=== PATIENT | female | born 1965 | race Caucasian/White ===

== ENCOUNTER → 2018-01-23 | Outpatient (CLI) | payer BC ==
--- NOTE | 2018-01-23 17:45 | PN ---
PROGRESS NOTE Celina is a 52-year-old female patient coming in for a yearly checkup regarding obstructive sleep apnea. She has severe ANGELA with an AHI of 108 and she has been using her CPAP regularly. She is benefitting from the treatment. She has an auto CPAP unit with a minimum pressure of 4, maximum pressure of 12. She has been compliant and she has been having no major hypersomnia or sleepiness during the day. She is in to obtain her CPAP supplies, and she wants to change her DME to [employer]. Her current [place] score is 7. No other new-onset comorbidities. I checked her compliance data, and the patient has been averaging around 5.4 hours of CPAP use per night. AHI while on treatment is down to 2. Her leak factor is only 9 L. Her CPAP pressure is 9 cm of water and she has been utilizing her CPAP more than 4 hours for 25 out of 30 days over this past 30-day compliancy data period. HER CURRENT VITAL SIGNS: Blood pressure 133/82, pulse 79, respirations 16, temperature 98.2. Weight is 249. Height is 5 feet 2 inches. [place] score is 7. BMI is 35.5. Saturation 94% on room air. GENERAL APPEARANCE: Calm, comfortable. Head is atraumatic, normocephalic. NECK: Short, supple. There is no crowding of the posterior pharynx. There is no goiter. No neck masses. LUNGS: Clear to auscultation. Heart sounds are regular rate and rhythm. Normal S1, S2. No S3, S4. No murmurs. Abdomen is soft, nontender. No organomegaly. EXTREMITIES: No edema. No cyanosis or clubbing. SKIN: Negative for any wounds or ulceration. IMPRESSION: 1. Severe symptomatic obstructive sleep apnea with an AHI of 108. The patient continues to be successfully treated with an APAP with a minimum pressure of 5, maximum pressure of 12. She is very compliant and continues to benefit from treatment. She has lost around 5 pounds since her last evaluation. 2. Obesity with a body mass index of 38.5. 3. Hypersomnia, resolved. [place] Score is 7. PLAN: 1. Renew her CPAP supplies through [employer]. The patient has an AirFit F10 full-face mask, medium size. 2. Encourage weight loss. 3. Implement good sleep hygiene measures. 4. Will continue to follow. MMODL / IJN: [id number] /
== END | disposition home or self-care (01) ==
LOC: SLEEP 16:03
PROVIDERS: ATTEND Internal Medicine Critical Care Medicine
DX: G47.33 Obstructive sleep apnea (adult) (pediatric) (principal); E66.9 Obesity, unspecified; Z99.89 Dependence on other enabling machines and devices; Z68.38 Body mass index [BMI] 38.0-38.9, adult

== ENCOUNTER → 2018-08-22 | Outpatient (CLI) | payer BC ==
--- NOTE | 2018-08-23 11:35 | MM ---
Reason for exam: screening (asymptomatic). Last mammogram was performed 4 years and 3 months ago. History: Patient is postmenopausal. Physical Findings: A clinical breast exam by your physician is recommended on an annual basis and results should be correlated with mammographic findings. MG 3D Screening Mammo W/Cad Bilateral CC and MLO view(s) were taken. Prior study comparison: May 20, 2014, bilateral MG screening mammo w CAD. The breast tissue is heterogeneously dense. This may lower the sensitivity of mammography. There is a right upper outer quadrant middle depth mas on 3D views. No suspicious abnormality on left. ASSESSMENT: Incomplete: need additional imaging evaluation, BI-RAD 0 RECOMMENDATION: Special view mammogram of the right breast. If lesion persists on supplemental views, image directed ultrasound is recommended. [facility] will attempt to contact patient to return for supplemental views and ultrasound if indicated.
== END | disposition home or self-care (01) ==
LOC: RADMAMWWP 14:36
PROVIDERS: ATTEND Family Medicine
DX: Z12.31 Encounter for screening mammogram for malignant neoplasm of breast (principal)
CPT/HCPCS: 77063; 77067

== ENCOUNTER → 2018-08-28 | Outpatient (CLI) | payer BC ==
--- NOTE | 2018-08-29 09:34 | MM ---
Reason for exam: additional evaluation requested from abnormal screening. Last mammogram was performed less than 1 month ago. History: Patient is postmenopausal. Physical Findings: Nurse did not find any significant physical abnormalities on exam. MG 3D Work Up W/Cad RT Spot compression CC, spot compression MLO, and LM view(s) were taken of the right breast. Prior study comparison: August 22, 2018, bilateral MG 3d screening mammo w/cad. May 20, 2014, bilateral MG screening mammo w CAD. The breast tissue is heterogeneously dense. This may lower the sensitivity of mammography. No distinct lesion persists on additional views but dense tissue remains. These results were verbally communicated with the patient and result sheet given to the patient on 08/28/18. ASSESSMENT: Incomplete: need additional imaging evaluation, BI-RAD 0 RECOMMENDATION: Ultrasound of the right breast.
--- NOTE | 2018-08-29 09:35 | USB ---
Reason for exam: additional evaluation requested from abnormal screening. History: Patient is postmenopausal. US Breast Workup Limited RT Right limited breast ultrasound including focal area of concern, retroareolar and axilla demonstrates a 6 x 3 x 8mm oval lesion too small to characterize at 9 o'clock, suspect debris filled cyst. These results were verbally communicated with the patient and result sheet given to the patient on 08/28/18. ASSESSMENT: Probably benign, BI-RAD 3 RECOMMENDATION: Follow-up diagnostic mammogram and ultrasound of the right breast in 6 months.
== END | disposition home or self-care (01) ==
LOC: RADMAMWWP 15:34
PROVIDERS: ATTEND Family Medicine
DX: R92.8 Other abnormal and inconclusive findings on diagnostic imaging of breast (principal)
CPT/HCPCS: 77061; 77065

== ENCOUNTER → 2019-06-12 | Outpatient (CLI) | payer BC ==
--- NOTE | 2019-06-12 09:41 | MM ---
Reason for exam: follow-up at short interval from prior study. Last mammogram was performed 9 months ago. History: Patient is postmenopausal. Physical Findings: Nurse did not find any significant physical abnormalities on exam. MG 3D Diag Mammo W/Cad RT CC, MLO, ML, and XCCL view(s) were taken of the right breast. Prior study comparison: August 28, 2018, right breast MG 3d work up w/cad RT. August 22, 2018, bilateral MG 3d screening mammo w/cad. The breast tissue is heterogeneously dense. This may lower the sensitivity of mammography. No significant new findings when compared with previous films. These results were verbally communicated with the patient and result sheet given to the patient on 06/12/19. ASSESSMENT: Probably benign, BI-RAD 3 RECOMMENDATION: Follow-up diagnostic mammogram of both breasts in 3 months. Back on schedule for August 2019.
--- NOTE | 2019-06-12 09:43 | USB ---
Reason for exam: follow-up at short interval from prior study. History: Patient is postmenopausal. US Breast RT Right complete breast ultrasound includes all four quadrants, the retroareolar region and axilla. Finding demonstrates a 0.7 x 0.8 x 0.3cm oval, lobular, cystic, complex lesion at 9 o'clock, improved appearance from comparison. Lymph node in axilla. These results were verbally communicated with the patient and result sheet given to the patient on 06/12/19. ASSESSMENT: Probably benign, BI-RAD 3 RECOMMENDATION: Follow-up diagnostic mammogram of both breasts in 3 months. Back on schedule for August 2019.
== END | disposition home or self-care (01) ==
LOC: RADMAMWWP 07:43
PROVIDERS: ATTEND Family Medicine
DX: R92.8 Other abnormal and inconclusive findings on diagnostic imaging of breast (principal)
CPT/HCPCS: 77061; 77065

== ENCOUNTER → 2021-08-16 | Outpatient (CLI) | payer BC ==
--- NOTE | 2021-08-16 20:59 | CONS ---
CONSULTATION This is a 56-year-old female patient coming to see me after 3-1/2 years of interruption. The patient is known to have severe obstructive sleep apnea with an AHI of 108 and the patient has been treated with an APAP at a pressure minimum of 4, maximum pressure of 12 cm of water. The patient has remained compliant with APAP therapy over the years. She has no specific complaints. Note that the patient is morbidly obese and she has lost some weight since her last evaluation. She used to weigh around 249 pounds back in 2018 and currently she is down to 225 pounds. She is using an AirFit F10 medium-sized full-face mask. For the most part, she is very compliant. She has been utilizing her machine every night and she has been averaging around 6 hours of APAP use per night. Her usage for more than 4 hours is around 70%. Leak is on the order of 24 L/minute and her AHI is down to 2.6, indicating successful treatment. She has no other new complaints otherwise for now. Her machine is functional. She is interested in updating her machine at a later stage, and I asked her to wait for the newer-generation ResMed to come up prior to making any updates. No new-onset comorbidities otherwise. No history of any hypertension, congestive heart failure, atrial fibrillation or any strokes. No restlessness in the lower extremities. No sleep paralysis, hallucinations or cataplexy. Sleep is non-fragmented. She is going to bed around 9:30 p.m., waking up at 6 a.m. in the morning, and she has no snoring while on the treatment. [place] score is down to 7. PAST MEDICAL HISTORY: 1. Obstructive sleep apnea. 2. Obesity. PAST SURGICAL HISTORY: Past surgical history includes shoulder surgery, bilateral knee surgeries, arthroscopic, resection of a bone spur from the left foot, orbital decompression and previous history of nose surgery. DRUG ALLERGIES: SULFA. MEDICATIONS: Outpatient medication includes Wellbutrin 150 mg one tablet a day, metoprolol 50 mg one tablet a day, and Synthroid 125 mcg one tablet a day. SOCIAL HISTORY: Nonsmoker. No history of alcoholism. No history of IV drugs. She quit smoking 25 years ago. FAMILY HISTORY: Negative for sleep apnea. REVIEW OF SYSTEMS: Twelve-point review of systems was done. Positive findings are all mentioned in the history of present illness. She is currently drinking around 2 cups of coffee during the day. Weight is down compared to 3 years ago. She is sleeping on her side. No dyspnea, chest pain, shortness of breath, heartburn overnight. [place] score is only 7. No grinding of the teeth. PHYSICAL EXAMINATION: VITAL SIGNS: BP is 144/76, pulse 71, respirations 16, temperature 97.0, saturation 96% on room air. Height is 5 feet 3 inches. Weight is 225. BMI 39.8 and [place] score is 7 with a neck size 17-3/4 inches. GENERAL APPEARANCE: Calm, comfortable, obese. HEAD: Atraumatic, normocephalic. Neck is supple. No JVD. No goiter or neck masses. Mallampati class IV. LUNGS: Clear to auscultation. Heart sounds are regular rate and rhythm. Normal S1, S2. No S3, S4. No murmurs. ABDOMEN: Soft, nontender. No organomegaly. EXTREMITIES: No edema. No cyanosis or clubbing. NEUROLOGIC: Awake and alert. There is no focal neurological deficit. PSYCHIATRIC: Negative for anxiety or depression. IMPRESSION: 1. Severe symptomatic obstructive sleep apnea with AHI of 18, currently successfully being treated with an APAP at a pressure minimum of 4, maximum of 12. Compliance check was done. 2. Obesity with interval weight loss over the past few years. Current BMI is 39.8. Weight is down to 225. 3. Chronic hypersomnia, improved. [place] score is down to 7. 4. Hypothyroidism, currently on Synthroid. PLAN: 1. Continue using the same APAP unit, pressure minimum of 4, maximum of 12. 2. Renew her supplies. I also offered a [employer] [id number] small-sized full- face mask as an alternative for AirFit F10. 3. Will update her CPAP machine in a few years' time and she will be waiting for a newer-generation ResMed machine to come up prior to her being updated. 4. Encourage further weight loss. 5. Working on sleep hygiene measures. 6. She has an adequate sleep schedule. 7. Adequately treated. [place] score is down to 7. 8. Will continue to follow. See me back in a year's time in followup. MMODL / IJN: [id number] /
== END ==
LOC: SLEEP 15:00
PROVIDERS: ATTEND Internal Medicine Critical Care Medicine
DX: G47.33 Obstructive sleep apnea (adult) (pediatric) (principal); E66.9 Obesity, unspecified; E03.9 Hypothyroidism, unspecified; Z68.39 Body mass index [BMI] 39.0-39.9, adult; Z99.89 Dependence on other enabling machines and devices; Z79.899 Other long term (current) drug therapy; Z88.2 Allergy status to sulfonamides
CPT/HCPCS: 99211

== ENCOUNTER → 2022-08-04 | Outpatient (CLI) | payer BC ==
--- NOTE | 2022-08-07 09:55 | MM ---
Reason for Exam: Screening (asymptomatic). Last mammogram was performed 3 year(s) and 11 month(s) ago. Patient History: Menarche at age 14. First Full-Term at age 24. Postmenopausal. Risk Values: Kelley 5 year model risk: 1.0%. NCI Lifetime model risk: 6.5%. Prior Study Comparison: 08/22/2018 Bilateral Screening Mammogram, [facility]. 08/28/2018 Right Diagnostic Mammogram, [facility]. 06/12/2019 Right Diagnostic Mammogram, [facility]. Tissue Density: The breast tissue is heterogeneously dense. This may lower the sensitivity of mammography. Findings: Analyzed By CAD. There is no suspicious group of microcalcifications or new suspicious mass in either breast. Benign-appearing round scattered calcifications within the right breast. Overall Assessment: Benign, BI-RAD 2 Management: Screening Mammogram of both breasts in 1 year. A clinical breast exam by your physician is recommended on an annual basis and results should be correlated with mammographic findings. Electronically signed and approved by: Amadeo De La Rosa D.O.
== END | disposition home or self-care (01) ==
LOC: RADMAMWWP 10:52
PROVIDERS: ATTEND Family Medicine
DX: Z12.31 Encounter for screening mammogram for malignant neoplasm of breast (principal); Z78.0 Asymptomatic menopausal state
CPT/HCPCS: 77063; 77067